=== PATIENT | male | born 1990 | race Caucasian/White ===

== ENCOUNTER → 2021-07-08 12:46 | Outpatient (CLI) | payer OTHER, SELFPAY ==
--- NOTE | 2021-07-08 12:46 | CT_ITS ---
FINAL REPORT TECHNIQUE: Thin section axial CT images with coronal reformats were obtained through the neck after the administration of IV contrast. This study was performed with techniques to keep radiation doses as low as reasonably achievable (ALARA). Individualized dose reduction techniques using automated exposure control or adjustment of mA and/or kV according to the patient''s size were employed. CLINICAL HISTORY: right ear epidermoid inclusion cyst FINDINGS: There is no adenopathy or mass lesion present. There are small low-attenuation foci in the thyroid consistent with colloid cysts or adenomas. Limited images of the lung apices are unremarkable. The glottis and supraglottic areas are unremarkable. There is complete opacification of a partially visualized left maxillary sinus. The middle ear cavities are well aerated. The mastoid air cells are well aerated. No acute osseous abnormality is identified. IMPRESSION: No acute process. Chronic left maxillary sinusitis. Reviewed, Interpreted and Dictated by Andrea Eddy MD Transcribed by Jacques Cardenas Authenticated by Andrea Eddy MD on 07/08/2021 02:41:43 PM [facility]
== END ==
PROVIDERS: PCP Family Medicine; Visit Provider Student in an Organized Health Care Education/Training Program
DX: L72.0 Epidermal cyst (principal)
CPT/HCPCS: 70491; Q9967

== ENCOUNTER → 2021-07-22 07:54 | Outpatient (CLI) | payer OTHER, SELFPAY | PROVIDERS: Visit Provider Student in an Organized Health Care Education/Training Program | DX: Z01.812 Encounter for preprocedural laboratory examination (principal); Z11.52 Encounter for screening for COVID-19; L72.0 Epidermal cyst | CPT/HCPCS: C9803; U0003; U0005 ==

== ENCOUNTER 2021-07-23 06:54 | Day surgery (SDC) | payer OTHER, SELFPAY ==
[2021-07-18 10:34] VITALS: BMI 25.8
[2021-07-23] VITALS (9 sets, daily range): BP systolic 121–162; BP diastolic 67–94; PULSE 67–84; RESP 14–18; TEMP 36.3–36.6; O2SAT 94–98
--- NOTE | 2021-07-23 09:42 | P.PN_ITS ---
[facility] Anesthesia Checklist - Patient Identification Patient Identification: Arm Band, Verbal (Name & ) - Structural Data Admitted From: Home Planned Operative Procedure/s: Excision of cyst to right ear Consent for Planned Operative Procedure(s) Verified: Yes Verified Documents: Surgical Consent - NPO Status Verified Time NPO: 00:00 - Additional verifications Anesthesia Reactions: No Hx Blood Transfusions: No Blood Transfusion Reaction: No - Airway Assessment C-Spine Mobility Assessed: Yes TMJ Mobility Assessed: Yes Dentition: Good Dentition - Neurological Assessment Level of Consciousness: Awake, Alert, Appropriate - Anesthesia Plan ASA Class: II Anesthesia Type: General [facility] History I have reviewed the patient's past medical history: Yes Medical History: Denies:: Diabetes Mellitus Type 1, Diabetes Mellitus Type 2, Seizures *Have you ever received a pneumonia vaccine?: No *Have you received a flu vaccine this season?: No Other Medical History: Denies: Blood Transfusion Reaction Anesthesia experience/problems:: none Laterality Cases: Bilateral: Tonsillectomy Other Surgeries: Yes: No Previous Surgery - *Social History Last grade of school completed: High school graduate Smoking Status: Current every day smoker Tobacco Type: cigarettes # Packs/Day (cigarettes): 1 Alcohol Intake: current Substance Use Type: denies use *Occupational Status:: employed Housing: house *Travel in the last 8 weeks: None Family Hx:: No significant family history
--- NOTE | 2021-07-23 12:04 | HMH.OPNOTE ---
Date of procedure: 07/23/21 Pre-op Diagnosis:: right post auricular pits left maxillary chronic sinusitis Post-op Diagnosis:: same Procedure performed:: excision left post auricular pits nasal endoscopy Surgeon:: Sanjay Mendoza MD Anesthesia: RONALDOA Estimated blood loss (mL): 5 Operative findings:: right post auricular pits left septal deviation Operative note:: Patient was brought to the OR laid in a supine position and general anesthesia was induced. Patient was prepped and draped in usual fashion. I first started with the right postauricular pits. Patient had numerous draining postauricular pits as well as significant scar tissue in the postauricular area. Lidocaine with epinephrine 1-100,000 was injected into the incision site. An elliptical incision was made excising the pits and the associated hypertrophied scar tissue. I then dissected down through the skin and subcutaneous tissue to the level of the underlying fascia. Patient had significant scar tissue throughout this area without discrete mass. A second small additional area of pits, about 2-3 mm in length, on the posterior aspect of his lobule was also excised. Wounds were then thoroughly irrigated out. I undermined around the edges of the larger elliptical incision and then it was closed in 2 layers. The smaller 2 to 3 mm excision on the posterior aspect of his lobule was closed in 1 layer. Dermabond was then applied. I then turned to the sinus portion of the procedure. Patient was found on his preop CT scan to have what appeared to be a large mucous cyst in his left maxillary sinus. While he was asymptomatic from it we elected to proceed with opening this up to try to prevent future issues with it. His nares were decongested with Afrin-soaked pledgets. On nasal endoscopy it became apparent that the patient's septal deviation, which was noted on his preop CT scan but I did not think was severe enough to necessitate a septoplasty along with the Fess, was actually deviated enough to obstruct my ability to get to the maxillary sinus. I discussed with the patient's caregiver over the phone and we elected to abort this portion of the procedure rather than add on a septoplasty. The patient had wanted to minimize the amount of recovery following the procedure as well and this certainly would add additional recovery/packing/splints. This is certainly something we can [place] back to in the future if it does become an issue. At this time he was then turned back over to anesthesia to be awoken. Condition: stable Disposition: PACU Complications:: unable to perform left maxillary antrostomy 2/2 anatomy without performing septoplasty - decision made with specialist wound care intra op to abort that portion of the procedure
--- NOTE | 2021-07-23 12:43 | HMH.ANESI ---
[facility] Anesthesia Record Part I Intake, IV Amount: 0 Estimated blood loss (mL): 0 Urine output (mL): 0 Blood Pressure: 121/67 SaO2: 94 Pulse Rate: 84 Respiratory Rate: 14 Temperature: 97.7 F Patient is:: Drowsy Stable to PACU at:: 12:39
[2021-07-24 08:18] VITALS: BP 157/94; PULSE 78; TEMP 36.6
--- NOTE | 2021-07-24 08:18 | P.PN_ITS ---
[facility] Anesthesia Record Part II Discharge Time: 12:39 Destination: Home PACU nurse assessment reviewed?: Yes Patient Condition:: Good Anesthesia Complications:: None Swallowing reflex intact?: Yes Cyanosis?: No Blood Pressure: 157/94 Pulse Rate: 78 Temperature: 97.8 F Mental Status: Alert & Oriented Pain level:: 0 Nausea and/or vomitting:: None Intake, IV Amount: 0
== END 2021-07-23 13:12 | disposition home or self-care (01) ==
LOC: OR 06:55
PROVIDERS: PCP Nurse Practitioner Family; Visit Provider Student in an Organized Health Care Education/Training Program
PROC: (CPT 11444; principal; 2021-07-23 08:30)
DX: L72.0 Epidermal cyst (principal); J32.0 Chronic maxillary sinusitis; J34.1 Cyst and mucocele of nose and nasal sinus; J34.2 Deviated nasal septum; Z72.0 Tobacco use
CPT/HCPCS: 11444; 12052; 31233; 96374; J0330; J2405

== ENCOUNTER → 2021-08-14 14:03 | Outpatient (CLI) | payer OTHER, SELFPAY | PROVIDERS: Visit Provider Student in an Organized Health Care Education/Training Program | DX: L72.0 Epidermal cyst (principal); B95.8 Unspecified staphylococcus as the cause of diseases classified elsewhere | CPT/HCPCS: 87070; 87077; 87186; 87205 ==

== ENCOUNTER → 2021-12-03 13:38 | Outpatient (CLI) | payer SELFPAY | PROVIDERS: PCP Family Medicine; Visit Provider Nurse Practitioner Family | DX: Z02.4 Encounter for examination for driving license (principal) ==

== ENCOUNTER → 2022-06-05 23:32 | Outpatient (CLI) | payer OTHER, SELFPAY | PROVIDERS: PCP Student in an Organized Health Care Education/Training Program; Visit Provider Student in an Organized Health Care Education/Training Program | DX: U07.1 COVID-19 (principal); R68.89 Other general symptoms and signs | CPT/HCPCS: C9803; U0003; U0005 ==